=== PATIENT | female | born 1950 | race Caucasian/White ===

== ENCOUNTER 2018-12-16 16:49 | Emergency (ER) | payer OTHER ==
[~2018-12-16] VITALS: Ht 157.5 cm; Wt 70.5 kg
[2018-12-16 17:10] VITALS: BP 118/79
--- NOTE | 2018-12-16 17:51 | NUR ---
Rx provided. Patient discharged to home in stable condition. Written and verbal after care instructions given. Patient verbalizes understanding of instruction.
== END 2018-12-16 17:53 | disposition home or self-care (01) ==
LOC: ER 16:51
DX: H66.91 Otitis media, unspecified, right ear (principal); Z91.040 Latex allergy status